=== PATIENT | male | born 1995 | race Caucasian/White ===

== ENCOUNTER 2018-01-02 06:45 | Emergency (ER) | payer OTHER ==
[~2018-01-02] VITALS: Ht 188 cm; Wt 112.2 kg
[2018-01-02] MEDS ORDERED: MAALOX/HYOSCYAMINE/LIDOCAINE 45 ML BTL PO ONE (07:30)
[2018-01-02] MEDS ORDERED: FAMOTIDINE 20 MG/2 ML IVP ONE (07:30)
[2018-01-02] MEDS ORDERED: SODIUM CHLORIDE 0.9% 1,000ML IVBOLUS ONE (07:30)
[2018-01-02] MEDS ORDERED: SODIUM CHLORIDE FLUSH 10ML SYR IVF ONE (07:30)
[2018-01-02] MEDS ORDERED: ONDANSETRON 2MG/ML, 2ML IVPush ONE (07:30)
[2018-01-02 07:36] LABS: BASOPHILS # (AUTO) 0.07 x10^3/uL (0-0.1); BASOPHILS % (AUTO) 1 % (0-1); EOSINOPHILS # (AUTO) 0.24 x10^3/uL (0-0.4); EOSINOPHILS % (AUTO) 2 % (1-7); LYMPHOCYTES # (AUTO) 1.71 x10^3/uL (1-3.4); LYMPHOCYTES % (AUTO) 13 % (22-44); MD NO; MEAN CORPUSCULAR HEMOGLOBIN 30.3 pg (27.5-34.5); MEAN CORPUSCULAR HGB CONC 34.8 g/dL (33.2-36.2); MEAN CORPUSCULAR VOLUME 87.1 fL (81-97); MONOCYTES # (AUTO) 0.79 x10^3/uL (0.2-0.8); MONOCYTES % (AUTO) 6 % (2-9); NEUTROPHILS # (AUTO) 9.92 x10^3/uL (1.8-6.8); NEUTROPHILS % (AUTO) 78 % (42-75); PLATELET COUNT 268 x10^3/uL (130-400); RED CELL DISTRIBUTION WIDTH 12.7 % (9.4-14.8)
[2018-01-02] MEDS ORDERED: FAMOTIDINE 20 MG/2 ML ONE (07:40)
[2018-01-02] MEDS ORDERED: ONDANSETRON 2MG/ML, 2ML ONE (07:40)
[2018-01-02] MEDS ORDERED: MAALOX/HYOSCYAMINE/LIDOCAINE 45 ML BTL ONE (07:40)
[2018-01-02 07:49] LABS: ALANINE AMINOTRANSFERASE 24 U/L (12-78); ALBUMIN 3.8 g/dL (3.4-5.0); ANION GAP 9 mmol/L (5-15); CALCIUM 9.5 mg/dL (8.5-10.1); CHLORIDE 98 mmol/L (98-107); CREATININE 0.96 mg/dL (0.7-1.3)
[2018-01-02 07:52] LABS: ALKALINE PHOSPHATASE 74 U/L (45-117); BILIRUBIN,TOTAL 1.4 mg/dL (0.2-1.0); TOTAL PROTEIN 8.6 g/dL (6.4-8.2)
[2018-01-02 07:57] LABS: MICROSCOPIC AUTO
[2018-01-02 08:01] LABS: CULTURE INDICATED? YES
[2018-01-02] MEDS ORDERED: ONDANSETRON ODT 4 MG ONE (08:07)
[2018-01-02] MEDS ORDERED: FAMOTIDINE 20 MG TABLET ONE (08:07)
[2018-01-02] MEDS ORDERED: FAMOTIDINE 20 MG TABLET PO ONE (08:30)
[2018-01-02] MEDS ORDERED: ONDANSETRON ODT 4 MG PO ONE (08:30)
[2018-01-02 09:23] VITALS: BP 134/74
== END 2018-01-02 09:26 | disposition home or self-care (01) ==
LOC: ED 09:13
DX: K29.00 Acute gastritis without bleeding (principal); E80.6 Other disorders of bilirubin metabolism
CPT/HCPCS: 36415; 76700; 80053; 81001; 83690; 85025; 87086; 99285; Q0162

== ENCOUNTER 2018-01-05 06:43 | Inpatient (IN) | payer OTHER ==
[~2018-01-05] VITALS: Ht 188 cm; Wt 111.9 kg
[2018-01-05] MEDS ORDERED: FAMOTIDINE 20 MG/2 ML ONE (08:20)
[2018-01-05] MEDS ORDERED: ONDANSETRON 2MG/ML, 2ML ONE (08:20)
[2018-01-05] MEDS ORDERED: MAALOX/HYOSCYAMINE/LIDOCAINE 45 ML BTL ONE (08:20)
[2018-01-05 08:26] LABS: BASOPHILS # (AUTO) 0.02 x10^3/uL (0-0.1); BASOPHILS % (AUTO) 0 % (0-1); EOSINOPHILS # (AUTO) 0.24 x10^3/uL (0-0.4); EOSINOPHILS % (AUTO) 2 % (1-7); LYMPHOCYTES # (AUTO) 1.65 x10^3/uL (1-3.4); LYMPHOCYTES % (AUTO) 11 % (22-44); MD NO; MEAN CORPUSCULAR HEMOGLOBIN 29.9 pg (27.5-34.5); MEAN CORPUSCULAR HGB CONC 34.5 g/dL (33.2-36.2); MEAN CORPUSCULAR VOLUME 86.6 fL (81-97); MEAN PLATELET VOLUME 8.3 fL (7.4-10.4); MONOCYTES # (AUTO) 0.84 x10^3/uL (0.2-0.8); MONOCYTES % (AUTO) 6 % (2-9); NEUTROPHILS % (AUTO) 82 % (42-75); PLATELET COUNT 309 x10^3/uL (130-400); RED BLOOD COUNT 5.39 x10^6/uL (4.38-5.82); RED CELL DISTRIBUTION WIDTH 12.5 % (9.4-14.8)
[2018-01-05 08:30] LABS: ALANINE AMINOTRANSFERASE 19 U/L (12-78); ALBUMIN 3.9 g/dL (3.4-5.0); ANION GAP 13 mmol/L (5-15); CALCIUM 9.3 mg/dL (8.5-10.1); CHLORIDE 98 mmol/L (98-107)
[2018-01-05] MEDS ORDERED: MAALOX/HYOSCYAMINE/LIDOCAINE 45 ML BTL PO ONE (08:30)
[2018-01-05] MEDS ORDERED: SODIUM CHLORIDE FLUSH 10ML SYR IVF ONE (08:30)
[2018-01-05] MEDS ORDERED: FAMOTIDINE 20 MG/2 ML IVP ONE (08:30)
[2018-01-05] MEDS ORDERED: SODIUM CHLORIDE 0.9% 1,000ML IVBOLUS ONE (08:30)
[2018-01-05] MEDS ORDERED: MORPHINE SULFATE 4 MG/ML, 1ML IVPush PRN (08:30)
[2018-01-05] MEDS ORDERED: ONDANSETRON 2MG/ML, 2ML IVPush ONE (08:30)
[2018-01-05 08:33] LABS: ALKALINE PHOSPHATASE 69 U/L (45-117); BILIRUBIN,TOTAL 1.2 mg/dL (0.2-1.0); CREATININE 0.81 mg/dL (0.7-1.3); TOTAL PROTEIN 8.7 g/dL (6.4-8.2)
[2018-01-05] MEDS ORDERED: OMNIPAQUE 350 MG/ML, 100ML BOTTLE ONE ×2 (09:01→19:03)
[2018-01-05] MEDS ORDERED: METRONIDAZOLE PMX 500MG/100ML 100 ML IVPB ONE (09:30)
[2018-01-05] MEDS ORDERED: CEFTRIAXONE PMX 1GM/50ML 50 ML IV ONE (09:30)
[2018-01-05] MEDS ORDERED: CEFTRIAXONE PMX 1GM/50ML 50 ML ONE (10:14)
[2018-01-05] MEDS ORDERED: METRONIDAZOLE PMX 500MG/100ML 100 ML ONE (10:14)
[2018-01-05 10:35] LABS: MICROSCOPIC AUTO
[2018-01-05 10:53] LABS: CULTURE INDICATED? NO
[2018-01-05] MEDS: D5%-0.45% NACL 1,000 ML IV SCH ×3 (11:18→20:54)
[2018-01-05] MEDS ORDERED: ONDANSETRON ODT 4 MG PO PRN (11:30)
[2018-01-05] MEDS ORDERED: POLYETHYLENE GLYCOL 17 GM PACKET PO PRN (11:30)
[2018-01-05] MEDS ORDERED: LABETALOL 5MG/ML, 20ML IVPush PRN (11:30)
[2018-01-05] MEDS ORDERED: ONDANSETRON 2MG/ML, 2ML IVPush PRN (11:30)
[2018-01-05] MEDS: ENOXAPARIN 40 MG/0.4 ML SQ SCH (11:30)
[2018-01-05 11:59] VITALS: BP 133/85
[2018-01-05] MEDS: PANTOPRAZOLE 40 MG IV IVPush SCH ×2 (13:50→23:57)
[2018-01-05] MEDS: morphine SULFATE 10 MG/ML, 1ML IVPush PRN ×4 (14:00→23:57)
[2018-01-05 16:41] VITALS: BP 147/82
[2018-01-05 20:04] VITALS: BP 137/74
[2018-01-06 01:06] VITALS: BP 148/70
[2018-01-06] MEDS: morphine SULFATE 10 MG/ML, 1ML IVPush PRN ×7 (01:54→23:40)
[2018-01-06] MEDS: D5%-0.45% NACL 1,000 ML IV SCH ×3 (03:48→20:11)
[2018-01-06 05:58] LABS: CHLORIDE 102 mmol/L (98-107)
[2018-01-06 06:12] LABS: BASOPHILS # (AUTO) 0.04 x10^3/uL (0-0.1); BASOPHILS % (AUTO) 0 % (0-1); EOSINOPHILS # (AUTO) 0.31 x10^3/uL (0-0.4); EOSINOPHILS % (AUTO) 3 % (1-7); LYMPHOCYTES # (AUTO) 1.93 x10^3/uL (1-3.4); LYMPHOCYTES % (AUTO) 16 % (22-44); MD NO; MEAN CORPUSCULAR HEMOGLOBIN 30.4 pg (27.5-34.5); MEAN CORPUSCULAR HGB CONC 34.9 g/dL (33.2-36.2); MEAN CORPUSCULAR VOLUME 87.1 fL (81-97); MONOCYTES # (AUTO) 0.76 x10^3/uL (0.2-0.8); MONOCYTES % (AUTO) 6 % (2-9); NEUTROPHILS # (AUTO) 8.83 x10^3/uL (1.8-6.8); NEUTROPHILS % (AUTO) 74 % (42-75); PLATELET COUNT 249 x10^3/uL (130-400); RED BLOOD COUNT 4.92 x10^6/uL (4.38-5.82); RED CELL DISTRIBUTION WIDTH 12.6 % (9.4-14.8)
[2018-01-06 06:18] LABS: ANION GAP 11 mmol/L (5-15); CALCIUM 8.4 mg/dL (8.5-10.1); CREATININE 0.78 mg/dL (0.7-1.3)
[2018-01-06 06:19] LABS: ALANINE AMINOTRANSFERASE 16 U/L (12-78); ALBUMIN 3.1 g/dL (3.4-5.0); ALKALINE PHOSPHATASE 59 U/L (45-117); BILIRUBIN,TOTAL 0.5 mg/dL (0.2-1.0); TOTAL PROTEIN 7.3 g/dL (6.4-8.2)
[2018-01-06 07:34] VITALS: BP 132/81
[2018-01-06] MEDS: SENNA/DOCUSATE TABLET PO SCH (08:47)
[2018-01-06] MEDS: PANTOPRAZOLE 40 MG IV IVPush SCH ×2 (11:54→23:41)
[2018-01-06] MEDS: ENOXAPARIN 40 MG/0.4 ML SQ SCH (11:55)
[2018-01-06 13:16] VITALS: BP 147/88
[2018-01-06] MEDS ORDERED: MORPHINE SULFATE 4 MG/ML, 1ML ONE ×2 (20:03→23:37)
[2018-01-06] MEDS: HYDROcodone/APAP 5/325 TABLET PO PRN (20:10)
[2018-01-06 20:19] VITALS: BP 144/80
[2018-01-06] MEDS: MAALOX/HYOSCYAMINE/LIDOCAINE 45 ML BTL PO PRN (21:20)
[2018-01-07 02:00] VITALS: BP 127/76
[2018-01-07] MEDS ORDERED: MORPHINE SULFATE 4 MG/ML, 1ML ONE (02:06)
[2018-01-07] MEDS: HYDROcodone/APAP 5/325 TABLET PO PRN ×5 (02:11→19:11)
[2018-01-07] MEDS: morphine SULFATE 10 MG/ML, 1ML IVPush PRN ×2 (02:12→08:57)
[2018-01-07] MEDS: D5%-0.45% NACL 1,000 ML IV SCH ×2 (03:10→10:16)
[2018-01-07 04:42] LABS: BASOPHILS % (AUTO) 0 % (0-1); EOSINOPHILS % (AUTO) 2 % (1-7); LYMPHOCYTES # (AUTO) 1.56 x10^3/uL (1-3.4); LYMPHOCYTES % (AUTO) 12 % (22-44); MD NO; MEAN CORPUSCULAR HEMOGLOBIN 30.3 pg (27.5-34.5); MEAN CORPUSCULAR HGB CONC 34.6 g/dL (33.2-36.2); MEAN CORPUSCULAR VOLUME 87.6 fL (81-97); MONOCYTES # (AUTO) 0.57 x10^3/uL (0.2-0.8); MONOCYTES % (AUTO) 4 % (2-9); NEUTROPHILS # (AUTO) 11.08 x10^3/uL (1.8-6.8); NEUTROPHILS % (AUTO) 82 % (42-75); PLATELET COUNT 262 x10^3/uL (130-400); RED BLOOD COUNT 5.14 x10^6/uL (4.38-5.82); RED CELL DISTRIBUTION WIDTH 12.6 % (9.4-14.8)
[2018-01-07 04:54] LABS: ANION GAP 9 mmol/L (5-15); CALCIUM 8.3 mg/dL (8.5-10.1); CHLORIDE 102 mmol/L (98-107); CREATININE 0.73 mg/dL (0.7-1.3)
[2018-01-07 06:46] VITALS: BP 142/86
[2018-01-07] MEDS: SENNA/DOCUSATE TABLET PO SCH (08:57)
[2018-01-07] MEDS: SUCRALFATE 1 GM/10 ML UDC PO SCH ×3 (11:55→21:00)
[2018-01-07] MEDS: PANTOPRAZOLE 40 MG IV IVPush SCH (11:55)
[2018-01-07] MEDS: ENOXAPARIN 40 MG/0.4 ML SQ SCH (11:55)
[2018-01-07 13:17] VITALS: BP 143/77
[2018-01-07] MEDS: MAALOX/HYOSCYAMINE/LIDOCAINE 45 ML BTL PO PRN (13:55)
[2018-01-07] MEDS: SODIUM CHLORIDE 0.45% 1,000 ML IV SCH (16:05)
[2018-01-07 18:39] VITALS: BP 146/82
[2018-01-08] MEDS: MAALOX/HYOSCYAMINE/LIDOCAINE 45 ML BTL PO PRN (00:19)
[2018-01-08] MEDS: SODIUM CHLORIDE 0.45% 1,000 ML IV SCH ×3 (00:19→16:28)
[2018-01-08] MEDS: PANTOPRAZOLE 40 MG IV IVPush SCH ×3 (00:19→22:57)
[2018-01-08] MEDS: HYDROcodone/APAP 5/325 TABLET PO PRN ×3 (02:41→16:28)
[2018-01-08 04:24] VITALS: BP 125/75
[2018-01-08 04:55] LABS: BASOPHILS # (AUTO) 0.05 x10^3/uL (0-0.1); BASOPHILS % (AUTO) 0 % (0-1); EOSINOPHILS # (AUTO) 0.39 x10^3/uL (0-0.4); EOSINOPHILS % (AUTO) 3 % (1-7); LYMPHOCYTES % (AUTO) 14 % (22-44); MD NO; MEAN CORPUSCULAR HEMOGLOBIN 30.1 pg (27.5-34.5); MEAN CORPUSCULAR HGB CONC 34.6 g/dL (33.2-36.2); MEAN CORPUSCULAR VOLUME 86.8 fL (81-97); MEAN PLATELET VOLUME 8.1 fL (7.4-10.4); MONOCYTES # (AUTO) 0.75 x10^3/uL (0.2-0.8); MONOCYTES % (AUTO) 6 % (2-9); NEUTROPHILS # (AUTO) 9.03 x10^3/uL (1.8-6.8); NEUTROPHILS % (AUTO) 76 % (42-75); PLATELET COUNT 264 x10^3/uL (130-400); RED BLOOD COUNT 4.96 x10^6/uL (4.38-5.82); RED CELL DISTRIBUTION WIDTH 13.1 % (9.4-14.8)
[2018-01-08 05:08] LABS: ALANINE AMINOTRANSFERASE 87 U/L (12-78); ALBUMIN 2.6 g/dL (3.4-5.0); ANION GAP 8 mmol/L (5-15); CALCIUM 8.4 mg/dL (8.5-10.1); CHLORIDE 100 mmol/L (98-107); CREATININE 0.77 mg/dL (0.7-1.3)
[2018-01-08 05:10] LABS: ALKALINE PHOSPHATASE 94 U/L (45-117); BILIRUBIN,TOTAL 0.8 mg/dL (0.2-1.0); TOTAL PROTEIN 6.6 g/dL (6.4-8.2)
[2018-01-08 07:45] VITALS: BP 139/80
[2018-01-08] MEDS: SUCRALFATE 1 GM/10 ML UDC PO SCH ×4 (07:45→22:57)
[2018-01-08] MEDS: SENNA/DOCUSATE TABLET PO SCH (08:26)
[2018-01-08] MEDS: ENOXAPARIN 40 MG/0.4 ML SQ SCH (11:54)
[2018-01-08 13:35] VITALS: BP 130/83
[2018-01-08] MEDS: ASCORBIC ACID 500 MG TABLET PO SCH (18:17)
[2018-01-08] MEDS: MULTIVITAMINS/MINERALS TABLET PO SCH (18:17)
[2018-01-08 18:35] VITALS: BP 134/84
[2018-01-08 19:09] LABS: OCCULT BLOOD POSITIVE (NEGATIVE)
[2018-01-09] MEDS: SODIUM CHLORIDE 0.45% 1,000 ML IV SCH (01:30)
[2018-01-09 05:15] VITALS: BP 122/75
[2018-01-09 05:37] LABS: BASOPHILS # (AUTO) 0.04 x10^3/uL (0-0.1); BASOPHILS % (AUTO) 0 % (0-1); EOSINOPHILS # (AUTO) 0.44 x10^3/uL (0-0.4); EOSINOPHILS % (AUTO) 5 % (1-7); LYMPHOCYTES # (AUTO) 1.77 x10^3/uL (1-3.4); LYMPHOCYTES % (AUTO) 20 % (22-44); MD NO; MEAN CORPUSCULAR HEMOGLOBIN 30.1 pg (27.5-34.5); MEAN CORPUSCULAR HGB CONC 34.8 g/dL (33.2-36.2); MEAN CORPUSCULAR VOLUME 86.7 fL (81-97); MEAN PLATELET VOLUME 7.9 fL (7.4-10.4); MONOCYTES # (AUTO) 0.49 x10^3/uL (0.2-0.8); MONOCYTES % (AUTO) 6 % (2-9); NEUTROPHILS # (AUTO) 6.01 x10^3/uL (1.8-6.8); NEUTROPHILS % (AUTO) 69 % (42-75); PLATELET COUNT 263 x10^3/uL (130-400); RED BLOOD COUNT 4.65 x10^6/uL (4.38-5.82); RED CELL DISTRIBUTION WIDTH 12.6 % (9.4-14.8)
[2018-01-09 05:45] LABS: ALANINE AMINOTRANSFERASE 55 U/L (12-78); ALBUMIN 2.6 g/dL (3.4-5.0); ANION GAP 8 mmol/L (5-15); CHLORIDE 102 mmol/L (98-107)
[2018-01-09 05:48] LABS: ALKALINE PHOSPHATASE 75 U/L (45-117); BILIRUBIN,TOTAL 0.7 mg/dL (0.2-1.0); CREATININE 0.65 mg/dL (0.7-1.3); TOTAL PROTEIN 5.9 g/dL (6.4-8.2)
[2018-01-09 07:03] VITALS: BP 109/64
[2018-01-09] MEDS: SENNA/DOCUSATE TABLET PO SCH (09:00)
[2018-01-09] MEDS: MULTIVITAMINS/MINERALS TABLET PO SCH (09:00)
[2018-01-09] MEDS: SUCRALFATE 1 GM/10 ML UDC PO SCH ×3 (09:20→16:00)
[2018-01-09] MEDS: ASCORBIC ACID 500 MG TABLET PO SCH (09:20)
[2018-01-09] MEDS: PANTOPRAZOLE 40 MG IV IVPush SCH (12:19)
[2018-01-09] MEDS: ENOXAPARIN 40 MG/0.4 ML SQ SCH (12:19)
[2018-01-09 13:10] VITALS: BP 127/75
[2018-01-09 14:32] LABS: ANA SCREEN NEGATIVE (Negative)
[2018-01-09 14:40] LABS: INTERNATIONAL NORMALIZED RATIO 1.05 (0.93-1.1); PROTHROMBIN TIME 10.8 Seconds (9.6-11.5)
[2018-01-09] MEDS ORDERED: ASCO500T6 PO (16:38)
[2018-01-09] MEDS ORDERED: PANT40TA5 PO (16:38)
[2018-01-09] MEDS ORDERED: SUCR1ORA5 PO (16:38)
[2018-01-09] MEDS ORDERED: MULT-484 PO (16:38)
== END 2018-01-09 18:10 | disposition home or self-care (01) | DRG 391 ==
LOC: ED 09:57 → EDIP 11:18 → 4WST 11:51
PROVIDERS: ADMIT Hospitalist; ATTEND Hospitalist
DX: K29.80 Duodenitis without bleeding (principal); K85.90 Acute pancreatitis without necrosis or infection, unspecified; R17 Unspecified jaundice; E87.1 Hypo-osmolality and hyponatremia; E86.0 Dehydration; F17.210 Nicotine dependence, cigarettes, uncomplicated; R23.3 Spontaneous ecchymoses
CPT/HCPCS: 36415; 71275; 74177; 76700; 80048; 80053; 81001; 82040; 82272; 83605; 83690; 83735; 84100; 84145; 85025; 85379; 85610; 85730; 86038; 87040; 93005; J0696; J1650; J2405; Q9967; C9113; J2270; J7030; J7512; S0028

== ENCOUNTER → 2018-01-11 | Outpatient (CLI) | payer OTHER ==
[~2018-01-11] MED LIST: ASCO500T6 PO; MULT-484 PO; PANT40TA5 PO; SUCR1ORA5 PO
[2018-01-11 14:57] LABS: BASOPHILS # (AUTO) 0.04 x10^3/uL (0-0.1); BASOPHILS % (AUTO) 1 % (0-1); EOSINOPHILS # (AUTO) 0.21 x10^3/uL (0-0.4); EOSINOPHILS % (AUTO) 2 % (1-7); LYMPHOCYTES # (AUTO) 2.09 x10^3/uL (1-3.4); LYMPHOCYTES % (AUTO) 23 % (22-44); MD NO; MEAN CORPUSCULAR HEMOGLOBIN 29.8 pg (27.5-34.5); MEAN CORPUSCULAR VOLUME 87.6 fL (81-97); MEAN PLATELET VOLUME 7.7 fL (7.4-10.4); MONOCYTES # (AUTO) 0.39 x10^3/uL (0.2-0.8); MONOCYTES % (AUTO) 4 % (2-9); NEUTROPHILS # (AUTO) 6.22 x10^3/uL (1.8-6.8); NEUTROPHILS % (AUTO) 70 % (42-75); PLATELET COUNT 369 x10^3/uL (130-400); RED BLOOD COUNT 4.55 x10^6/uL (4.38-5.82); RED CELL DISTRIBUTION WIDTH 12.6 % (9.4-14.8)
[2018-01-11 15:04] LABS: HCT (SEDRATE) 39.8 % (39.2-51.8)
[2018-01-11 15:06] LABS: ALANINE AMINOTRANSFERASE 147 U/L (12-78); ALBUMIN 3.4 g/dL (3.4-5.0); ANION GAP 9 mmol/L (5-15); CALCIUM 8.7 mg/dL (8.5-10.1); CHLORIDE 102 mmol/L (98-107)
[2018-01-11 15:09] LABS: MICROSCOPIC NOT IND
[2018-01-11 15:13] LABS: ALKALINE PHOSPHATASE 74 U/L (45-117); BILIRUBIN,TOTAL 0.4 mg/dL (0.2-1.0); CREATININE 0.75 mg/dL (0.7-1.3); TOTAL PROTEIN 7.6 g/dL (6.4-8.2)
== END ==
LOC: LAB 14:35
PROVIDERS: ATTEND Family Medicine
DX: K85.90 Acute pancreatitis without necrosis or infection, unspecified (principal); D69.9 Hemorrhagic condition, unspecified
CPT/HCPCS: 36415; 80053; 81003; 83615; 83690; 85025; 85651; 86038; 86140; 86256

== ENCOUNTER 2018-01-15 04:09 | Inpatient (IN) | payer OTHER ==
[~2018-01-15] VITALS: Ht 188 cm; Wt 106.8 kg
[2018-01-15] MEDS ORDERED: ONDANSETRON 2MG/ML, 2ML ONE (04:35)
[2018-01-15] MEDS ORDERED: MORPHINE SULFATE 4 MG/ML, 1ML ONE ×2 (04:57→06:55)
[2018-01-15] MEDS ORDERED: morphine SULFATE 10 MG/ML, 1ML IVPush ONE (05:00)
[2018-01-15] MEDS ORDERED: SODIUM CHLORIDE 0.9% 1,000ML IVBOLUS ONE (05:00)
[2018-01-15] MEDS ORDERED: ONDANSETRON 2MG/ML, 2ML IVPush ONE (05:00)
[2018-01-15 05:23] LABS: BASOPHILS # (AUTO) 0.04 x10^3/uL (0-0.1); BASOPHILS % (AUTO) 0 % (0-1); EOSINOPHILS % (AUTO) 1 % (1-7); LYMPHOCYTES # (AUTO) 1.57 x10^3/uL (1-3.4); LYMPHOCYTES % (AUTO) 10 % (22-44); MD NO; MEAN CORPUSCULAR HEMOGLOBIN 30.1 pg (27.5-34.5); MEAN CORPUSCULAR HGB CONC 34.8 g/dL (33.2-36.2); MEAN CORPUSCULAR VOLUME 86.4 fL (81-97); MEAN PLATELET VOLUME 7.8 fL (7.4-10.4); MONOCYTES # (AUTO) 0.55 x10^3/uL (0.2-0.8); MONOCYTES % (AUTO) 3 % (2-9); NEUTROPHILS # (AUTO) 14.23 x10^3/uL (1.8-6.8); NEUTROPHILS % (AUTO) 86 % (42-75); PLATELET COUNT 418 x10^3/uL (130-400); RED BLOOD COUNT 4.76 x10^6/uL (4.38-5.82); RED CELL DISTRIBUTION WIDTH 12.1 % (9.4-14.8)
[2018-01-15 05:24] LABS: ALBUMIN 3.4 g/dL (3.4-5.0); ANION GAP 11 mmol/L (5-15); CALCIUM 8.9 mg/dL (8.5-10.1); CHLORIDE 103 mmol/L (98-107)
[2018-01-15 05:27] LABS: CREATININE 0.73 mg/dL (0.7-1.3)
[2018-01-15 05:28] LABS: ALANINE AMINOTRANSFERASE 57 U/L (12-78); ALKALINE PHOSPHATASE 70 U/L (45-117); BILIRUBIN,TOTAL 1.1 mg/dL (0.2-1.0); TOTAL PROTEIN 8.1 g/dL (6.4-8.2)
[2018-01-15] MEDS ORDERED: PANTOPRAZOLE 80 MG in SODIUM CHLORIDE 0.9% 50 ML IVPB ONE (06:07)
[2018-01-15] MEDS: PANTOPRAZOLE 80 MG in SODIUM CHLORIDE 0.9% 100 ML IV SCH ×2 (06:46→16:07)
[2018-01-15] MEDS: MORPHINE SULFATE 4 MG/ML, 1ML IVPush PRN ×2 (07:11→09:47)
[2018-01-15] MEDS ORDERED: ACETAMINOPHEN 325 MG TABLET PO PRN (08:00)
[2018-01-15] MEDS ORDERED: BISACODYL 10 MG SUPP PR PRN (08:00)
[2018-01-15] MEDS ORDERED: POLYETHYLENE GLYCOL 17 GM PACKET PO PRN (08:00)
[2018-01-15] MEDS ORDERED: ENALAPRILAT 1.25 MG/ML, 2ML IVPush PRN (08:00)
[2018-01-15] MEDS ORDERED: DOCUSATE 100 MG CAPSULE PO PRN (08:00)
[2018-01-15] MEDS: POTASSIUM CHLORIDE 20 MEQ in LACTATED RINGERS 1,000 ML IV SCH ×2 (09:36→22:35)
[2018-01-15] MEDS: PANTOPRAZOLE 40 MG IV IVPush SCH ×2 (09:47→19:32)
[2018-01-15] MEDS: morphine SULFATE 10 MG/ML, 1ML IVPush PRN ×3 (12:36→22:35)
[2018-01-15 13:24] VITALS: BP 136/84
[2018-01-15] MEDS ORDERED: FENTANYL PF 100 MCG/2ML ONE (15:19)
[2018-01-15] MEDS ORDERED: MIDAZOLAM 1 MG/ML, 2ML ONE ×2 (15:20)
[2018-01-15] MEDS: ONDANSETRON 2MG/ML, 2ML IVPush PRN (19:32)
[2018-01-15 19:55] VITALS: BP 130/91
[2018-01-16] MEDS: morphine SULFATE 10 MG/ML, 1ML IVPush PRN ×3 (02:05→08:26)
[2018-01-16 02:57] VITALS: BP 138/90
[2018-01-16 05:15] LABS: BASOPHILS # (AUTO) 0.05 x10^3/uL (0-0.1); BASOPHILS % (AUTO) 0 % (0-1); EOSINOPHILS # (AUTO) 0.21 x10^3/uL (0-0.4); EOSINOPHILS % (AUTO) 1 % (1-7); LYMPHOCYTES # (AUTO) 1.44 x10^3/uL (1-3.4); LYMPHOCYTES % (AUTO) 8 % (22-44); MD NO; MEAN CORPUSCULAR HEMOGLOBIN 30.1 pg (27.5-34.5); MEAN CORPUSCULAR HGB CONC 34.6 g/dL (33.2-36.2); MEAN PLATELET VOLUME 7.6 fL (7.4-10.4); MONOCYTES # (AUTO) 0.73 x10^3/uL (0.2-0.8); MONOCYTES % (AUTO) 4 % (2-9); NEUTROPHILS # (AUTO) 15.27 x10^3/uL (1.8-6.8); NEUTROPHILS % (AUTO) 86 % (42-75); PLATELET COUNT 372 x10^3/uL (130-400); RED BLOOD COUNT 4.45 x10^6/uL (4.38-5.82); RED CELL DISTRIBUTION WIDTH 13.3 % (9.4-14.8)
[2018-01-16 05:28] LABS: ALANINE AMINOTRANSFERASE 35 U/L (12-78); ALBUMIN 2.9 g/dL (3.4-5.0); ANION GAP 7 mmol/L (5-15); CALCIUM 8.8 mg/dL (8.5-10.1); CHLORIDE 100 mmol/L (98-107); CREATININE 0.66 mg/dL (0.7-1.3)
[2018-01-16 05:30] LABS: ALKALINE PHOSPHATASE 66 U/L (45-117); BILIRUBIN,TOTAL 0.9 mg/dL (0.2-1.0)
[2018-01-16 07:59] VITALS: BP 129/77
[2018-01-16] MEDS: PANTOPRAZOLE 40 MG IV IVPush SCH ×2 (08:26→21:12)
[2018-01-16] MEDS: ONDANSETRON 2MG/ML, 2ML IVPush PRN (08:33)
[2018-01-16] MEDS: SUCRALFATE 1 GM/10 ML UDC PO SCH ×3 (10:26→21:12)
[2018-01-16 12:47] VITALS: BP 125/79
[2018-01-16] MEDS ORDERED: MORPHINE SULFATE 4 MG/ML, 1ML IVPush ONE (15:00)
[2018-01-16] MEDS ORDERED: OMNIPAQUE 350 MG/ML, 100ML BOTTLE ONE (16:40)
[2018-01-16] MEDS ORDERED: MAALOX/HYOSCYAMINE/LIDOCAINE 45 ML BTL PO ONE (18:00)
[2018-01-16] MEDS: HYDROcodone/APAP 5/325 TABLET PO PRN ×2 (18:45→23:54)
[2018-01-16 19:53] VITALS: BP 144/84
[2018-01-17] MEDS ORDERED: DO NOT GIVE MC ONE
[2018-01-17] MEDS ORDERED: NS + 40MEQ KCL 1,000 ML IV SCH (03:00)
[2018-01-17 04:44] VITALS: BP 130/85
[2018-01-17 04:54] LABS: BASOPHILS # (AUTO) 0.03 x10^3/uL (0-0.1); BASOPHILS % (AUTO) 0 % (0-1); EOSINOPHILS # (AUTO) 0.23 x10^3/uL (0-0.4); EOSINOPHILS % (AUTO) 1 % (1-7); LYMPHOCYTES # (AUTO) 1.42 x10^3/uL (1-3.4); LYMPHOCYTES % (AUTO) 8 % (22-44); MD NO; MEAN CORPUSCULAR HEMOGLOBIN 29.9 pg (27.5-34.5); MEAN CORPUSCULAR HGB CONC 34.4 g/dL (33.2-36.2); MEAN CORPUSCULAR VOLUME 86.8 fL (81-97); MEAN PLATELET VOLUME 7.5 fL (7.4-10.4); MONOCYTES # (AUTO) 0.78 x10^3/uL (0.2-0.8); MONOCYTES % (AUTO) 5 % (2-9); NEUTROPHILS # (AUTO) 14.41 x10^3/uL (1.8-6.8); NEUTROPHILS % (AUTO) 85 % (42-75); PLATELET COUNT 386 x10^3/uL (130-400); RED BLOOD COUNT 4.58 x10^6/uL (4.38-5.82)
[2018-01-17 05:01] LABS: ANION GAP 11 mmol/L (5-15); CALCIUM 8.9 mg/dL (8.5-10.1); CHLORIDE 96 mmol/L (98-107)
[2018-01-17 05:03] LABS: CREATININE 0.73 mg/dL (0.7-1.3)
[2018-01-17] MEDS: SUCRALFATE 1 GM/10 ML UDC PO SCH ×4 (06:10→20:15)
[2018-01-17 09:43] VITALS: BP 135/91
[2018-01-17] MEDS: HYDROcodone/APAP 5/325 TABLET PO PRN ×2 (09:49→17:50)
[2018-01-17] MEDS: PANTOPRAZOLE 40 MG IV IVPush SCH ×2 (09:49→20:15)
[2018-01-17 12:01] VITALS: BP 134/83
[2018-01-17] MEDS: KETOROLAC 30 MG/1 ML IV PRN ×2 (12:49→19:22)
[2018-01-17] MEDS ORDERED: KETOROLAC 30 MG/1 ML IM SCH (13:00)
[2018-01-17 13:40] VITALS: BP 110/64
[2018-01-17] MEDS: SODIUM CHLORIDE 0.9% 1,000 ML IV SCH (16:09)
[2018-01-17 18:44] VITALS: BP 108/70
[2018-01-18] MEDS: SODIUM CHLORIDE 0.9% 1,000 ML IV SCH (01:36)
[2018-01-18 01:55] VITALS: BP 105/70
[2018-01-18] MEDS: KETOROLAC 30 MG/1 ML IV PRN (04:17)
[2018-01-18 05:48] LABS: ANION GAP 9 mmol/L (5-15); CALCIUM 8.6 mg/dL (8.5-10.1); CHLORIDE 102 mmol/L (98-107); CREATININE 0.74 mg/dL (0.7-1.3)
[2018-01-18 05:54] LABS: BASOPHILS # (AUTO) 0.08 x10^3/uL (0-0.1); BASOPHILS % (AUTO) 1 % (0-1); EOSINOPHILS % (AUTO) 4 % (1-7); LYMPHOCYTES # (AUTO) 1.73 x10^3/uL (1-3.4); LYMPHOCYTES % (AUTO) 19 % (22-44); MD NO; MEAN CORPUSCULAR HEMOGLOBIN 29.9 pg (27.5-34.5); MEAN CORPUSCULAR HGB CONC 34.4 g/dL (33.2-36.2); MEAN CORPUSCULAR VOLUME 86.8 fL (81-97); MEAN PLATELET VOLUME 7.4 fL (7.4-10.4); MONOCYTES # (AUTO) 0.56 x10^3/uL (0.2-0.8); MONOCYTES % (AUTO) 6 % (2-9); NEUTROPHILS # (AUTO) 6.33 x10^3/uL (1.8-6.8); NEUTROPHILS % (AUTO) 70 % (42-75); PLATELET COUNT 325 x10^3/uL (130-400); RED BLOOD COUNT 4.26 x10^6/uL (4.38-5.82); RED CELL DISTRIBUTION WIDTH 13.2 % (9.4-14.8)
[2018-01-18] MEDS: SUCRALFATE 1 GM/10 ML UDC PO SCH ×4 (06:31→20:43)
[2018-01-18 06:38] VITALS: BP 106/68
[2018-01-18] MEDS: PANTOPRAZOLE 40 MG IV IVPush SCH ×2 (07:41→19:51)
[2018-01-18 13:46] VITALS: BP 115/69
[2018-01-18 19:43] VITALS: BP_SYST 118; BP_SYST 129; BP_DIAS 73; BP_DIAS 76
[2018-01-19 01:34] VITALS: BP 106/68
[2018-01-19] MEDS: SUCRALFATE 1 GM/10 ML UDC PO SCH (06:21)
[2018-01-19] MEDS: PANTOPRAZOLE 40 MG IV IVPush SCH (08:04)
[2018-01-19 09:53] VITALS: BP 110/64
[2018-01-19 10:02] VITALS: BP 110/64
== END 2018-01-19 10:42 | disposition home or self-care (01) | DRG 378 ==
LOC: ED 04:38 → EDIP 07:03 → 4NOR 08:24 → DCLOUNGE 01-19 10:31
PROVIDERS: ADMIT Internal Medicine; ATTEND Internal Medicine
PROC: 0DB68ZX Excision of Stomach, Via Natural or Artificial Opening Endoscopic, Diagnostic (ICD-10-PCS; 2018-01-15)
PROC: 0DB98ZX Excision of Duodenum, Via Natural or Artificial Opening Endoscopic, Diagnostic (ICD-10-PCS; principal; 2018-01-15 15:00)
DX: K29.81 Duodenitis with bleeding (principal); K56.7 Ileus, unspecified; K26.0 Acute duodenal ulcer with hemorrhage; F17.290 Nicotine dependence, other tobacco product, uncomplicated; F12.90 Cannabis use, unspecified, uncomplicated; D18.00 Hemangioma unspecified site; D72.829 Elevated white blood cell count, unspecified; R73.9 Hyperglycemia, unspecified; B96.81 Helicobacter pylori [H. pylori] as the cause of diseases classified elsewhere
CPT/HCPCS: 36415; 74021; 74177; 76700; 78227; 80048; 80053; 83690; 85014; 85018; 85025; 86308; 86677; 88305; 96361; 96365; 96375; 99152; 99153; J1885; J2250; J2405; J3010; J3480; Q9967; A9537; C9113; C9898; J2270; J7030; J7120

== ENCOUNTER 2018-02-12 09:53 | Inpatient (IN) | payer OTHER ==
[~2018-02-12] VITALS: Ht 188 cm; Wt 103.9 kg
[2018-02-12] MEDS ORDERED: PANTOPRAZOLE 80 MG in SODIUM CHLORIDE 0.9% 50 ML IVPB ONE (09:56)
[2018-02-12] MEDS ORDERED: PANTOPRAZOLE 80 MG in SODIUM CHLORIDE 0.9% 100 ML IV SCH (09:56)
[2018-02-12] MEDS ORDERED: SODIUM CHLORIDE 0.9% 1,000ML IVBOLUS ONE (10:00)
[2018-02-12] MEDS ORDERED: ONDANSETRON 2MG/ML, 2ML IVPush ONE (10:00)
[2018-02-12] MEDS ORDERED: FAMOTIDINE 20 MG/2 ML IVPush ONE (10:00)
[2018-02-12] MEDS ORDERED: SODIUM CHLORIDE FLUSH 10ML SYR IVF ONE (10:00)
[2018-02-12] MEDS ORDERED: FENTANYL PF 100 MCG/2ML ONE (10:09)
[2018-02-12] MEDS ORDERED: MIDAZOLAM 1 MG/ML, 5ML ONE (10:09)
[2018-02-12] MEDS ORDERED: ONDANSETRON 2MG/ML, 2ML ONE (10:19)
[2018-02-12] MEDS ORDERED: FAMOTIDINE 20 MG/2 ML ONE (10:19)
[2018-02-12 10:27] LABS: BASOPHILS # (AUTO) 0.04 x10^3/uL (0-0.1); BASOPHILS % (AUTO) 1 % (0-1); EOSINOPHILS % (AUTO) 1 % (1-7); LYMPHOCYTES # (AUTO) 0.82 x10^3/uL (1-3.4); LYMPHOCYTES % (AUTO) 10 % (22-44); MD NO; MEAN CORPUSCULAR HEMOGLOBIN 29.1 pg (27.5-34.5); MEAN CORPUSCULAR HGB CONC 33.5 g/dL (33.2-36.2); MEAN CORPUSCULAR VOLUME 86.9 fL (81-97); MEAN PLATELET VOLUME 8.2 fL (7.4-10.4); MONOCYTES # (AUTO) 0.26 x10^3/uL (0.2-0.8); MONOCYTES % (AUTO) 3 % (2-9); NEUTROPHILS # (AUTO) 7.07 x10^3/uL (1.8-6.8); NEUTROPHILS % (AUTO) 85 % (42-75); PLATELET COUNT 275 x10^3/uL (130-400); RED BLOOD COUNT 3.89 x10^6/uL (4.38-5.82); RED CELL DISTRIBUTION WIDTH 13.9 % (9.4-14.8)
[2018-02-12 10:33] LABS: INTERNATIONAL NORMALIZED RATIO 1.05 (0.93-1.1); PROTHROMBIN TIME 10.9 Seconds (9.6-11.5)
[2018-02-12 10:35] LABS: ALANINE AMINOTRANSFERASE 30 U/L (12-78); ALBUMIN 3.1 g/dL (3.4-5.0); ANION GAP 9 mmol/L (5-15); CALCIUM 8.3 mg/dL (8.5-10.1); CHLORIDE 109 mmol/L (98-107)
[2018-02-12 10:38] LABS: ALKALINE PHOSPHATASE 56 U/L (45-117); BILIRUBIN,TOTAL 0.4 mg/dL (0.2-1.0); TOTAL PROTEIN 6.5 g/dL (6.4-8.2)
[2018-02-12] MEDS ORDERED: ONDANSETRON 2MG/ML, 2ML IVPush PRN (13:00)
[2018-02-12] MEDS ORDERED: ACETAMINOPHEN 325 MG TABLET PO PRN (13:00)
[2018-02-12] MEDS ORDERED: SODIUM CHLORIDE 0.9%, 500ML IVBOLUS ONE (13:30)
[2018-02-12] MEDS: NS + 20MEQ KCL 1,000 ML IV SCH (15:32)
[2018-02-12 15:33] VITALS: BP 103/70
[2018-02-12] MEDS: MOVIPREP POWDER 1 PREP KIT PO SCH (16:48)
[2018-02-12] MEDS: SUCRALFATE 1 GM/10 ML UDC PO SCH ×2 (16:58→20:30)
[2018-02-12 19:35] VITALS: BP 109/73
[2018-02-12] MEDS: OMEPRAZOLE 20 MG CAPSULE.DR PO SCH (20:30)
[2018-02-13 01:00] VITALS: BP 94/60
[2018-02-13] MEDS: NS + 20MEQ KCL 1,000 ML IV SCH (01:35)
[2018-02-13] MEDS: MOVIPREP POWDER 1 PREP KIT PO SCH (03:04)
[2018-02-13 05:13] LABS: BASOPHILS # (AUTO) 0.02 x10^3/uL (0-0.1); BASOPHILS % (AUTO) 1 % (0-1); EOSINOPHILS # (AUTO) 0.14 x10^3/uL (0-0.4); EOSINOPHILS % (AUTO) 3 % (1-7); LYMPHOCYTES % (AUTO) 39 % (22-44); MD NO; MEAN CORPUSCULAR HEMOGLOBIN 29.6 pg (27.5-34.5); MEAN CORPUSCULAR HGB CONC 33.9 g/dL (33.2-36.2); MEAN CORPUSCULAR VOLUME 87.3 fL (81-97); MEAN PLATELET VOLUME 8.3 fL (7.4-10.4); MONOCYTES # (AUTO) 0.24 x10^3/uL (0.2-0.8); MONOCYTES % (AUTO) 6 % (2-9); NEUTROPHILS # (AUTO) 2.27 x10^3/uL (1.8-6.8); NEUTROPHILS % (AUTO) 52 % (42-75); PLATELET COUNT 217 x10^3/uL (130-400); RED BLOOD COUNT 3.13 x10^6/uL (4.38-5.82); RED CELL DISTRIBUTION WIDTH 14.2 % (9.4-14.8)
[2018-02-13 05:22] LABS: ANION GAP 8 mmol/L (5-15); CHLORIDE 112 mmol/L (98-107)
[2018-02-13 05:24] LABS: CREATININE 0.64 mg/dL (0.7-1.3)
[2018-02-13 07:00] VITALS: BP 94/61
[2018-02-13] MEDS: SUCRALFATE 1 GM/10 ML UDC PO SCH ×4 (07:00→20:41)
[2018-02-13] MEDS ORDERED: MIDAZOLAM 1 MG/ML, 2ML ONE (08:56)
[2018-02-13] MEDS: OMEPRAZOLE 20 MG CAPSULE.DR PO SCH ×2 (09:00→20:41)
[2018-02-13] MEDS ORDERED: ONDANSETRON 2MG/ML, 2ML IVPush PRN (10:00)
[2018-02-13] MEDS ORDERED: LACTATED RINGERS 500 ML IVBOLUS PRN (10:00)
[2018-02-13] MEDS ORDERED: PROPOFOL 10 MG/ML, 50ML ONE (10:56)
[2018-02-13 12:15] VITALS: BP 108/52
[2018-02-13 18:46] VITALS: BP 108/64
[2018-02-14 00:42] VITALS: BP 107/68
[2018-02-14 05:28] LABS: BASOPHILS # (AUTO) 0.04 x10^3/uL (0-0.1); BASOPHILS % (AUTO) 1 % (0-1); EOSINOPHILS % (AUTO) 4 % (1-7); LYMPHOCYTES # (AUTO) 1.75 x10^3/uL (1-3.4); LYMPHOCYTES % (AUTO) 36 % (22-44); MD NO; MEAN CORPUSCULAR HEMOGLOBIN 30.1 pg (27.5-34.5); MEAN CORPUSCULAR HGB CONC 34.6 g/dL (33.2-36.2); MEAN CORPUSCULAR VOLUME 87.1 fL (81-97); MEAN PLATELET VOLUME 8.1 fL (7.4-10.4); MONOCYTES # (AUTO) 0.26 x10^3/uL (0.2-0.8); MONOCYTES % (AUTO) 6 % (2-9); NEUTROPHILS # (AUTO) 2.55 x10^3/uL (1.8-6.8); NEUTROPHILS % (AUTO) 53 % (42-75); PLATELET COUNT 203 x10^3/uL (130-400); RED BLOOD COUNT 2.93 x10^6/uL (4.38-5.82); RED CELL DISTRIBUTION WIDTH 13.7 % (9.4-14.8)
[2018-02-14 05:41] LABS: ANION GAP 6 mmol/L (5-15); CALCIUM 8.1 mg/dL (8.5-10.1); CHLORIDE 107 mmol/L (98-107)
[2018-02-14 05:44] LABS: CREATININE 0.66 mg/dL (0.7-1.3)
[2018-02-14] MEDS: OMEPRAZOLE 20 MG CAPSULE.DR PO SCH (07:44)
[2018-02-14] MEDS: SUCRALFATE 1 GM/10 ML UDC PO SCH (07:44)
[2018-02-14 07:50] VITALS: BP 94/60
[2018-02-14] MEDS ORDERED: OMEP-110 PO (09:27)
== END 2018-02-14 11:48 | disposition home or self-care (01) | DRG 378 ==
LOC: OR 12:04 → EDIP 12:16 → 4NOR 14:32 → DCLOUNGE 02-14 11:43
PROVIDERS: ADMIT Family Medicine; ATTEND Family Medicine
PROC: 0DJ08ZZ Inspection of Upper Intestinal Tract, Via Natural or Artificial Opening Endoscopic (ICD-10-PCS; 2018-02-12)
PROC: 0DJD8ZZ Inspection of Lower Intestinal Tract, Via Natural or Artificial Opening Endoscopic (ICD-10-PCS; principal; 2018-02-13 09:30)
DX: K92.0 Hematemesis (principal); D62 Acute posthemorrhagic anemia; E87.2 Acidosis; I95.9 Hypotension, unspecified; E44.0 Moderate protein-calorie malnutrition; G90.9 Disorder of the autonomic nervous system, unspecified; I80.9 Phlebitis and thrombophlebitis of unspecified site; K56.7 Ileus, unspecified; Z68.29 Body mass index [BMI] 29.0-29.9, adult; F12.90 Cannabis use, unspecified, uncomplicated; Z79.899 Other long term (current) drug therapy; Z87.11 Personal history of peptic ulcer disease; R73.9 Hyperglycemia, unspecified
CPT/HCPCS: 36415; 80048; 80053; 82941; 83605; 83690; 85014; 85018; 85025; 85610; 85730; 86850; 86900; 96361; 96365; 96366; 96367; 96375; 99152; 99153; J2250; J2405; J2704; J3010; J3480; C9113; J7030; J7040; S0028

== ENCOUNTER 2018-02-15 06:16 | Inpatient (IN) | payer OTHER ==
[~2018-02-15] VITALS: Ht 188 cm; Wt 103.2 kg
[~2018-02-15 06:16] MED LIST changes: +OMEP-110 PO
[2018-02-15 07:13] LABS: BASOPHILS # (AUTO) 0.04 x10^3/uL (0-0.1); BASOPHILS % (AUTO) 1 % (0-1); EOSINOPHILS # (AUTO) 0.13 x10^3/uL (0-0.4); EOSINOPHILS % (AUTO) 2 % (1-7); LYMPHOCYTES # (AUTO) 1.03 x10^3/uL (1-3.4); LYMPHOCYTES % (AUTO) 17 % (22-44); MD NO; MEAN CORPUSCULAR HEMOGLOBIN 29.7 pg (27.5-34.5); MEAN CORPUSCULAR HGB CONC 34.5 g/dL (33.2-36.2); MEAN CORPUSCULAR VOLUME 86.3 fL (81-97); MEAN PLATELET VOLUME 8.1 fL (7.4-10.4); MONOCYTES # (AUTO) 0.31 x10^3/uL (0.2-0.8); MONOCYTES % (AUTO) 5 % (2-9); NEUTROPHILS # (AUTO) 4.52 x10^3/uL (1.8-6.8); NEUTROPHILS % (AUTO) 75 % (42-75); PLATELET COUNT 270 x10^3/uL (130-400); RED BLOOD COUNT 3.05 x10^6/uL (4.38-5.82); RED CELL DISTRIBUTION WIDTH 14.2 % (9.4-14.8)
[2018-02-15 07:26] LABS: ALANINE AMINOTRANSFERASE 23 U/L (12-78); ALBUMIN 3.1 g/dL (3.4-5.0); ANION GAP 10 mmol/L (5-15); CALCIUM 8.4 mg/dL (8.5-10.1); CHLORIDE 106 mmol/L (98-107)
[2018-02-15 07:28] LABS: ALKALINE PHOSPHATASE 55 U/L (45-117); BILIRUBIN,TOTAL 0.3 mg/dL (0.2-1.0); TOTAL PROTEIN 6.3 g/dL (6.4-8.2)
[2018-02-15] MEDS ORDERED: MIDAZOLAM 1 MG/ML, 5ML ONE (07:49)
[2018-02-15] MEDS ORDERED: FENTANYL PF 100 MCG/2ML ONE (07:49)
[2018-02-15] MEDS ORDERED: LABETALOL 5MG/ML, 20ML IVPush PRN (10:30)
[2018-02-15] MEDS ORDERED: DOCUSATE 100 MG CAPSULE PO PRN (10:30)
[2018-02-15] MEDS ORDERED: hydrALAzine 20 MG/ML, 1ML IVPush PRN (10:30)
[2018-02-15] MEDS ORDERED: ONDANSETRON 2MG/ML, 2ML IVPush PRN (10:30)
[2018-02-15] MEDS ORDERED: OXYcodone IR 5MG TABLET PO PRN (10:30)
[2018-02-15] MEDS ORDERED: BISACODYL 10 MG SUPP PR PRN (10:30)
[2018-02-15] MEDS ORDERED: morphine SULFATE 10 MG/ML, 1ML IVPush PRN (10:30)
[2018-02-15] MEDS ORDERED: POLYETHYLENE GLYCOL 17 GM PACKET PO PRN (10:30)
[2018-02-15 10:59] LABS: FREE T4 (FREE THYROXINE) 1.21 ng/dL (0.76-1.46); THYROID STIMULATING HORMONE 1.72 mIU/L (0.358-3.740)
[2018-02-15 11:49] VITALS: BP 94/63
[2018-02-15] MEDS ORDERED: D5%-0.9% NACL+KCL 20MEQ 1,000 ML IV SCH (12:00)
[2018-02-15] MEDS: PANTOPRAZOLE 40 MG IV IVPush SCH (12:40)
[2018-02-15 13:36] VITALS: BP 102/64
[2018-02-15 19:15] VITALS: BP 111/69
[2018-02-16] VITALS (12 sets, daily range): BP systolic 96–110; BP diastolic 53–69
[2018-02-16] MEDS: PANTOPRAZOLE 40 MG IV IVPush SCH ×2 (01:02→12:57)
[2018-02-16 07:29] LABS: ALANINE AMINOTRANSFERASE 19 U/L (12-78); ALBUMIN 2.9 g/dL (3.4-5.0); ANION GAP 5 mmol/L (5-15); CALCIUM 8.2 mg/dL (8.5-10.1); CHLORIDE 109 mmol/L (98-107)
[2018-02-16 07:31] LABS: MEAN CORPUSCULAR HEMOGLOBIN 29.5 pg (27.5-34.5); MEAN CORPUSCULAR HGB CONC 33.6 g/dL (33.2-36.2); MEAN CORPUSCULAR VOLUME 87.7 fL (81-97); MEAN PLATELET VOLUME 7.9 fL (7.4-10.4); PLATELET COUNT 247 x10^3/uL (130-400); RED BLOOD COUNT 2.59 x10^6/uL (4.38-5.82); RED CELL DISTRIBUTION WIDTH 14.8 % (9.4-14.8)
[2018-02-16 07:32] LABS: ALKALINE PHOSPHATASE 44 U/L (45-117); BILIRUBIN,TOTAL 0.4 mg/dL (0.2-1.0); CHOLESTEROL, TOTAL 103 mg/dL (140-239); CREATININE 0.68 mg/dL (0.7-1.3); HDL CHOL % 25 % (26-37); HDL CHOLESTEROL (DIRECT) 26 mg/dL (40-60); LDL CHOLESTEROL,CALCULATED 41 mg/dL (54-169); LDL/HDL RATIO 1.6 (0.5-3.0); TOTAL PROTEIN 5.8 g/dL (6.4-8.2); TRIGLYCERIDES 182 mg/dL (50-200); VLDL CHOLESTEROL 36 mg/dL (0-25)
[2018-02-16 07:55] LABS: BASOPHILS # (AUTO) 0.01 x10^3/uL (0-0.1); BASOPHILS % (AUTO) 0 % (0-1); EOSINOPHILS # (AUTO) 0.15 x10^3/uL (0-0.4); EOSINOPHILS % (AUTO) 4 % (1-7); LYMPHOCYTES # (AUTO) 1.44 x10^3/uL (1-3.4); LYMPHOCYTES % (AUTO) 37 % (22-44); MD SCAN; MONOCYTES % (AUTO) 5 % (2-9); NEUTROPHILS % (AUTO) 54 % (42-75)
[2018-02-16] MEDS ORDERED: DIPHENHYDRAMINE 12.5MG/5ML, 10ML UDC PO ONE (09:30)
[2018-02-16] MEDS ORDERED: ACETAMINOPHEN 325 MG TABLET PO ONE (09:30)
[2018-02-17] MEDS: PANTOPRAZOLE 40 MG IV IVPush SCH ×2 (00:51→13:44)
[2018-02-17 02:00] VITALS: BP 102/61
[2018-02-17 08:00] VITALS: BP 102/61
[2018-02-17 14:50] VITALS: BP 104/64
[2018-02-17 20:00] VITALS: BP 109/66
[2018-02-18] MEDS: PANTOPRAZOLE 40 MG IV IVPush SCH ×2 (00:35→12:46)
[2018-02-18 02:00] VITALS: BP 100/52
[2018-02-18 07:55] VITALS: BP 96/55
[2018-02-18 14:35] VITALS: BP 109/67
[2018-02-18] MEDS ORDERED: MOVIPREP POWDER 1 PREP KIT PO ONE (18:00)
[2018-02-18 19:27] VITALS: BP 113/71
[2018-02-19] MEDS: PANTOPRAZOLE 40 MG IV IVPush SCH ×3 (00:55→22:09)
[2018-02-19 02:23] VITALS: BP 106/61
[2018-02-19 08:18] VITALS: BP 103/63
[2018-02-19] MEDS ORDERED: MIDAZOLAM 1 MG/ML, 5ML ONE (09:20)
[2018-02-19] MEDS ORDERED: FENTANYL PF 100 MCG/2ML ONE (09:20)
[2018-02-19] MEDS ORDERED: SIMETHICONE DROPS 40 MG/0.6 ML BOTTLE ONE (09:34)
[2018-02-19 12:25] VITALS: BP 101/61
[2018-02-19 20:13] VITALS: BP 117/75
[2018-02-20 01:30] VITALS: BP 102/68
[2018-02-20 07:35] VITALS: BP 102/62
[2018-02-20] MEDS ORDERED: FENTANYL PF 100 MCG/2ML ONE (08:05)
[2018-02-20] MEDS ORDERED: MIDAZOLAM 1 MG/ML, 5ML ONE (08:05)
[2018-02-20] MEDS: PANTOPRAZOLE 40 MG IV IVPush SCH ×2 (10:58→21:28)
[2018-02-20 13:00] VITALS: BP 102/63
[2018-02-20 19:45] VITALS: BP 105/72
[2018-02-21 02:58] VITALS: BP 99/61
[2018-02-21 07:00] VITALS: BP 102/68
[2018-02-21] MEDS: PANTOPRAZOLE 40 MG IV IVPush SCH (09:14)
[2018-02-21] MEDS ORDERED: SUCR1TAB33 PO (13:01)
== END 2018-02-21 14:17 | disposition home or self-care (01) | DRG 378 ==
LOC: ED 07:01 → EDIP 08:51 → 3NE 11:40
PROVIDERS: ADMIT Family Medicine; ATTEND Family Medicine
PROC: 0DJD8ZZ Inspection of Lower Intestinal Tract, Via Natural or Artificial Opening Endoscopic (ICD-10-PCS; 2018-02-15)
PROC: 0DJ08ZZ Inspection of Upper Intestinal Tract, Via Natural or Artificial Opening Endoscopic (ICD-10-PCS; 2018-02-15)
PROC: 30233N1 Transfusion of Nonautologous Red Blood Cells into Peripheral Vein, Percutaneous Approach (ICD-10-PCS; 2018-02-16)
PROC: 0DJD8ZZ Inspection of Lower Intestinal Tract, Via Natural or Artificial Opening Endoscopic (ICD-10-PCS; principal; 2018-02-19 09:00)
PROC: 0DJ08ZZ Inspection of Upper Intestinal Tract, Via Natural or Artificial Opening Endoscopic (ICD-10-PCS; 2018-02-20)
DX: K92.2 Gastrointestinal hemorrhage, unspecified (principal); E44.0 Moderate protein-calorie malnutrition; I80.9 Phlebitis and thrombophlebitis of unspecified site; D64.9 Anemia, unspecified; K92.0 Hematemesis; F12.10 Cannabis abuse, uncomplicated; K29.80 Duodenitis without bleeding; K44.9 Diaphragmatic hernia without obstruction or gangrene; Z87.11 Personal history of peptic ulcer disease; Z68.29 Body mass index [BMI] 29.0-29.9, adult
CPT/HCPCS: 36415; 78278; 80053; 80061; 83036; 83735; 84439; 84443; 85014; 85018; 85025; 85730; 86850; 86900; 86923; 99152; 99153; 99285; J2250; J3010; A9560; C9113; C9898; J3480; P9016